=== PATIENT | male | born 1990 | race Two or more races ===

== ENCOUNTER 2022-10-16 20:14 | Emergency (ER) | payer OTHER ==
[~2022-10-16] VITALS: Ht 175.3 cm; Wt 104.3 kg
--- NOTE | 2022-10-16 20:30 | NUR ---
BIBSELF C/O L SIDED CP X2 DAYS. ALSO C/O SCIATICA R FLANK RADIATING DOWN LEG. PATIENT IS AAOX4. ABLE TO MAKE NEEDS KNOWN. MUCH CONCERN WITH CP COMPARE TO SCIATICA. PATIENT IS AMBULATING. PLACED COMFORTABLY IN BED. VITALS CHECKED.
--- NOTE | 2022-10-16 22:11 | NUR ---
XRAY DONE AT BEDSIDE
[2022-10-16] MEDS ORDERED: KETOROLAC TROMETHAMINE INJ 30 MG/ML VIAL IM ONE (22:30)
[2022-10-16] MEDS ORDERED: KETOROLAC TROMETHAMINE INJ 30 MG/ML VIAL ONE (22:36)
[2022-10-16] MEDS ORDERED: IBUP-1955 PO (23:05)
[2022-10-16 23:21] VITALS: BP 121/76
--- NOTE | 2022-10-16 23:21 | NUR ---
Patient discharged to home in stable condition. Written and verbal after care instructions given. Patient verbalizes understanding of instruction.
== END 2022-10-16 23:21 | disposition home or self-care (01) ==
LOC: ER 20:18
DX: R07.89 Other chest pain (principal); M54.50 Low back pain, unspecified; Z79.899 Other long term (current) drug therapy
CPT/HCPCS: 99283; 71045; 96372; 93005; J1885

== ENCOUNTER 2024-03-02 07:12 | Emergency (ER) | payer OTHER ==
[~2024-03-02] VITALS: Ht 172.7 cm; Wt 90.7 kg
[~2024-03-02 07:12] MED LIST: IBUP-1955 PO
[2024-03-02 07:50] VITALS: BP 123/80; TEMP 98.4
[2024-03-02] MEDS ORDERED: IBUPROFEN 600 MG TABLET ONE (08:01)
[2024-03-02] MEDS: IBUPROFEN 600 MG TABLET PO ONE (08:05)
[2024-03-02] MEDS ORDERED: IBUP-1953 PO (08:34)
[2024-03-02 08:48] VITALS: O2SAT 96
== END 2024-03-02 08:49 | disposition home or self-care (01) ==
LOC: ER 07:16
DX: S63.591A Other specified sprain of right wrist, initial encounter (principal); X50.0XXA Overexertion from strenuous movement or load, initial encounter; Y93.89 Activity, other specified; Y92.89 Other specified places as the place of occurrence of the external cause; Y99.8 Other external cause status
CPT/HCPCS: 73110

== ENCOUNTER 2024-05-10 07:26 | Emergency (ER) | payer MEDICAID, OTHER ==
[~2024-05-10] VITALS: Ht 172.7 cm; Wt 79.4 kg
[~2024-05-10 07:26] MED LIST changes: +IBUP-1953 PO
[2024-05-10 08:04] VITALS: BP 133/94; TEMP 98.6
[2024-05-10] MEDS ORDERED: IBUPROFEN 400 MG TABLET ONE (08:27)
[2024-05-10] MEDS: IBUPROFEN 400 MG TABLET PO ONE (08:29)
[2024-05-10] MEDS ORDERED: IBUP-1955 PO (08:43)
[2024-05-10 08:54] VITALS: O2SAT 99
== END 2024-05-10 08:54 | disposition home or self-care (01) ==
LOC: ER 07:37
DX: S66.811A Strain of other specified muscles, fascia and tendons at wrist and hand level, right hand, initial encounter (principal); X58.XXXA Exposure to other specified factors, initial encounter; Y93.89 Activity, other specified; Y92.89 Other specified places as the place of occurrence of the external cause; Y99.8 Other external cause status
CPT/HCPCS: 73080-TC